=== PATIENT | female | born 2000 | race Caucasian/White ===

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

== ENCOUNTER 2024-05-31 20:35 | Emergency (ER) | payer SELFPAY ==
[2024-05-31] MEDS ORDERED: DIAZEPAM 5 MG TABLET ONE (21:02)
[2024-05-31 21:37] LABS: Absolute Basophils 0.1 K/uL (0-0.5); Absolute Eosinophils 0.1 K/uL (0-0.5); Absolute Lymphocytes (CBC) 1.3 K/uL (0.7-4.9); Absolute Monocytes 0.4 K/uL (0.1-1.3); Absolute Neutrophil 2.1 K/uL (1.8-8.0); Basophils % 3.7 % (0-1.3); Eosinophils % 1.9 % (0-4.4); Hematocrit 39.8 % (36.0-45.0); Hemoglobin 13.6 g/dL (12.0-15.0); Lymphocytes % 31.3 % (15.3-44.8); MCH 31.7 pg (27.0-35.0); MCHC 34.2 g/dL (32.0-36.0); MCV 92.5 fL (80-100); Monocytes % 9.6 % (3.3-12.3); Neutrophils % 53.5 % (41.7-73.7); Nucleated Red Blood Cells % 0.1 % (0-0); Platelets 267 thou/uL (152-406); Red Cell Distribution Width 13.6 % (12.1-15.2)
[2024-05-31 21:47] LABS: Barbiturates NEGATIVE (NEGATIVE); Benzodiazepines NEGATIVE (NEGATIVE); Cocaine NEGATIVE (NEGATIVE); METHAMPHETAM NEGATIVE (NEGATIVE); Methadone NEGATIVE (NEGATIVE); Opiates NEGATIVE (NEGATIVE); Phencyclidine NEGATIVE (NEGATIVE); THC Cannibis NEGATIVE (NEGATIVE)
[2024-05-31 21:50] LABS: Specific Gravity 1.004 (1.005-1.030)
[2024-05-31 21:52] LABS: ALT/SGPT 44 U/L (13-56); AST/SGOT 24 U/L (15-37); Albumin 3.6 g/dL (3.4-5.0); Alkaline Phosphatase 72 U/L (45-117); Anion Gap 7.5 mEq/L (5.0-15.0); BUN Blood Urea Nitrogen 6 mg/dL (7-18); Bicarbonate 27 mEq/L (21-32); Bilirubin Direct < 0.2 mg/dL (0-0.2); Bilirubin Indirect, Calculated 0.2 mg/dL (0.2-0.8); Bilirubin Total 0.4 mg/dL (0.2-1.0); Globulin 3.6 g/dL (2.3-3.5); Glomerular Filtration Rate 123 ml/min (=/>90); Glucose Level 83 mg/dL (74-106); Potassium 3.5 mEq/L (3.5-5.1); Protein, Total 7.2 g/dL (6.4-8.2); Sodium Level 137 mEq/L (136-145)
[2024-05-31 21:58] LABS: Specific Gravity < 1.005 (1.005-1.030); Sqamous Epithelial None Seen /HPF (None Seen); Urine Bacteria <20 /HPF (<20); Urine Bilirubin NEGATIVE (Negative); Urine Blood Negative (Negative); Urine Clarity Clear (Clear); Urine Color Colorless (Yellow); Urine Culture Reflex Order NOT NEEDED; Urine Glucose NEGATIVE (Negative); Urine Ketones NEGATIVE (Negative); Urine Microscopic Reflex YN ORDER UMIC; Urine Nitrite NEGATIVE (Negative); Urine Protein NEGATIVE (Negative); Urine RBC <5 /HPF (None Seen); Urine Urobilinogen Normal (Normal); Urine WBC <5 /HPF (<5); Urine pH 7.5 (5.0-7.0)
[2024-05-31 22:00] LABS: PT Prothrombin Time 11.6 SECONDS (9.4-12.5); PTT, Activated Partial Thromb 32.3 SECONDS (24.3-36.9); Protime INR 1.04
[2024-05-31 22:52] LABS: Band Neutrophils 14 % (0-1); Differential Total Cells Count 100; Eosinophils 2 % (0-3); Lymphocytes 29 % (15-42); Monocytes 4 % (0-10); Segmented Neutrophils 47 % (40-80)
[2024-05-31 22:53] LABS: Blood Morphology Comment NOT SEEN (NOT SEEN); Platelet Estimate ADEQ
--- NOTE | 2024-06-01 05:28 | ER ---
Nurse's Notes [facility] Name: Qi Wilcox Age: 24 yrs Sex: Female : 2000 Arrival Date: 05/31/2024 Time: 20:35 Bed 15 [facility] MD: Diagnosis: Suicidal ideations Presentation: 05/31 20:40 Chief complaint: Patient states: I was referred from my Doctors to come here if it was vc1 a mental health crisis. 20:49 Coronavirus screen: Client denies travel out of the [place] in the last 14 days. At this vc1 time, the client does not indicate any symptoms associated with coronavirus-19. Ebola Screen: Patient negative for fever greater than or equal to 101.5 degrees Fahrenheit, and additional compatible Ebola Virus Disease symptoms Patient denies exposure to infectious person. Patient denies travel to an Ebola-affected area in the 21 days before illness onset. No symptoms or risks identified at this time. Initial Sepsis Screen: Does the patient meet any 2 criteria? No. Patient's initial sepsis screen is negative. Does the patient have a suspected source of infection? No. Patient's initial sepsis screen is negative. Risk Assessment: Do you want to hurt yourself or someone else? Patient reports no desire to harm self or others. Onset of symptoms was May 27, 2024. Care prior to arrival: None. Activity prior to arrival: None. Mechanism of Injury: No Mechanism of Injury. Transition of care: patient was not received from another setting of care. 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 - Infectious Disease History:: Denies. - Social history:: Smoking status: Reported history of juuling and/or vaping. Patient uses alcohol, patient/guardian reports recent binge of alcohol consumption. - Family history:: not pertinent. Screenin:08 [facility] ED Fall Risk Assessment (Adult) History of falling in the last 3 months, me1 including since admission No falls in past 3 months (0 pts) Confusion or Disorientation No (0 pts) Intoxicated or Sedated No (0 pts) Impaired Gait No (0 pts) Mobility Assist Device Used No (0 pt) Altered Elimination No (0 pt) Score/Fall Risk Level 0 - 2 = Low Risk Maintained a safe environment, Provided non-skid footwear, Hourly rounding (assess needs \\T\\ fall precautionary measures) done. Abuse screen: Denies threats or abuse. Nutritional screening: No deficits noted. Tuberculosis screening: No symptoms or risk factors identified. Assessment: 21:08 General: Appears uncomfortable, well groomed, well developed, well nourished, Behavior me1 is cooperative, appropriate for age, flat. Pain: Denies pain. Neuro: Level of Consciousness is awake, alert, obeys commands, Oriented to person, place, time, situation, Appropriate for age. Cardiovascular: Patient's skin is warm and dry. Respiratory: Airway is patent Respiratory effort is even, unlabored, Respiratory pattern is regular, symmetrical. GI: No signs and/or symptoms were reported involving the gastrointestinal system. : No signs and/or symptoms were reported regarding the genitourinary system. EENT: No signs and/or symptoms were reported regarding the EENT system. Derm: Skin is intact, is healthy with good turgor, Skin is pink, warm \\T\\ dry. Musculoskeletal: No signs and/or symptoms reported regarding the musculoskeletal system. 06/01 02:45 General: [place] at bedside. . vc1 04:18 General: General: Report given to Tye with [facility], will call back to give AOC..vc1 04:24 Reassessment: No changes from previously documented assessment. Patient and/or family vc1 updated on plan of care and expected duration. Pain level reassessed. Psych: 05/31 20:40 [place] Suicide Severity Screening: In the past month, have you wished you were vc1 or wished you could go to sleep and not wake up? Patient responds "yes." Based off the client's responses additional C-SSRS screening is required. "In the past month, have you actually had any thoughts of killing yourself?" Patient responds "yes." Based off the client's response additional [place] suicide severity screening questions to be further documented on paper forms. "In your lifetime, have you ever done anything, started to do anything, or prepared to do anything to end your life?" Patient responds "yes." Patient reports suicidal intent within 3 past months. 20:40 Subjective: Patient's mood is sad, Delusions are denied, Hallucinations are denied vc1 Having thoughts of suicide. Denies suicidal plan. Objective: Patient is cooperative, using poor eye contact, Speech is soft, Affect is appropriate, Patient has mutilated themselves by left hand cut with knife. Patient uses any ETOH. Commitment: Patient will be an involuntary commitment. 20:40 Interventions: Removed personal items and placed in bag. Patient placed in hospital vc1 gown. Searched person for dangerous items. Urine collected and sent for urine drug test. 20:40 Safety Checks: Personal items have been removed. Door is open. Visitors are present. vc1 mom. Vital Signs: 20:49 Weight 61.23 kg; Height 5 ft. 1 in. ; Pain 0/10; vc1 20:58 BP 121 / 86; Pulse 98; Resp 14; Temp 97.6; Pulse Ox 100% ; vc1 06/01 05:13 BP 107 / 66; Pulse 80; Resp 18; Pulse Ox 99% on R/A; oe 05/31 20:49 Body Mass Index 25.51 (61.23 kg, 154.94 cm) vc1 05/31 20:49 Pain Scale: Adult vc1 [place] Coma Score: 02:47 Eye Response: spontaneous(4). Motor Response: obeys commands(6). Verbal Response: sp4 oriented(5). Total: 15. ED Course: 05/31 20:37 Patient arrived in ED. im 20:43 Xavier Ibarra MD is Attending Physician. sp4 20:49 Cristal Tse, JUAN LUIS is Primary Nurse. me1 20:50 Triage completed. vc1 20:57 Arm band placed on right wrist. vc1 21:08 Patient has correct armband on for positive identification. Bed in low position. Call me1 light in reach. Side rails up X 1. Provided Education on: POC. Verbalized understanding.. 21:08 No provider procedures requiring assistance completed. me1 21:20 Inserted saline lock: 22 gauge in right antecubital area, using aseptic technique. oe Blood collected. Flushed with 10 mL NS. 21:44 EKG done, by ED staff, reviewed by Xavier Ibarra MD. oe 06/01 00:00 Called [facility] for pt evaluation. rv1 02:00 Brianna with [facility] will be here in 1 hour for screening. rv1 04:05 Faxed pt clinical's to the following facilities for placement; [facility]. rv1 04:[address] Robertson to [facility], MOT given my [place]. rv1 04:39 Etelvina with [facility] gave 20 min ETA. rv1 05:15 IV discontinued, intact, bleeding controlled, No redness/swelling at site. Pressure vc1 dressing applied. Administered Medications: 05/31 21:05 Drug: Diazepam PO 5 mg PO once Route: PO; me1 22:34 Follow up: Response: No adverse reaction; Marked relief of symptoms; Anxiety decreased ss Medication: 21:08 VIS not applicable for this client. me1 Outcome: 06/01 05:15 Transferred by ground EMS [facility]. to other acute care facility: [facility]. vc1 Condition: good 05:15 ER care complete, transfer ordered by . vc1 05:15 Patient left the ED. Signatures: Kiya Salgado, RN RN Jose Alejandro Antonio Rukhsana Lay RN RN vc1 Pippa Kyle rv1 Xavier Ibarra MD MD sp4 Stephanie Rush Michelle, RN RN me1 Corrections: (The following items were deleted from the chart) 05:28 05:28 ER care complete, transfer ordered by . vc1 vc1 05:28 05:28 Patient left the ED. vc1 vc1
--- NOTE | 2024-06-01 05:28 | EDPHYS ---
Physician Documentation [facility] Name: Qi Wilcox Age: 24 yrs Sex: Female : 2000 Arrival Date: 05/31/2024 Time: 20:35 Bed 15 Private MD: ED Physician Xavier Ibarra HPI: 05/31 20:43 This 24 yrs old Other Race Female presents to ER via Unassigned with complaints of sp4 Mental health crisis. 06/01 02:47 4-year-old female presents with acute depression and suicide attempt on Friday via sp4 taking Lamictal. Patient states she took 4 tabs of her Lamictal. 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 - Infectious Disease History:: Denies. - Social history:: Smoking status: Reported history of juuling and/or vaping. Patient uses alcohol, patient/guardian reports recent binge of alcohol consumption. - Family history:: not pertinent. ROS: 06/01 02:47 Constitutional: Negative for fever, chills, and weight loss, positive depression, sp4 positive suicidal ideation positive suicide plan All other systems are negative, Exam: 02:47 Constitutional: This is a well developed, well nourished patient who is awake, alert, sp4 and in no acute distress. Head/Face: Normocephalic, atraumatic. Eyes: Pupils equal round and reactive to light, extra-ocular motions intact. Lids and lashes normal. Conjunctiva and sclera are not injected. Cornea within normal limits. Periorbital areas with no swelling, redness, or edema. ENT: Nares patent. No nasal discharge, no septal abnormalities noted. Tympanic membranes are normal and external auditory canals are clear. Oropharynx with no redness, swelling, or masses, exudates, or evidence of obstruction, uvula midline. Mucous membranes moist. Neck: Trachea midline, no thyromegaly or masses palpated, and no cervical lymphadenopathy. Supple, full range of motion without nuchal rigidity, or vertebral point tenderness. Chest/axilla: Normal chest wall appearance and motion. Nontender with no deformity. No lesions are appreciated. Cardiovascular: Regular rate and rhythm with a normal S1 and S2. No gallops, murmurs, or rubs. Normal PMI, no JVD. No pulse deficits. Respiratory: Lungs have equal breath sounds bilaterally, clear to auscultation and percussion. No rales, rhonchi or wheezes noted. No increased work of breathing, no retractions or nasal flaring. Abdomen/GI: Soft, with normal bowel sounds. No distension or tympany. No guarding or rebound. No evidence of tenderness throughout. Back: No spinal tenderness. No costovertebral tenderness. Skin: Warm, dry with normal turgor. Normal color with no rashes, no lesions, and no evidence of cellulitis. MS/ Extremity: Pulses equal, no cyanosis. Neurovascular intact. Full, normal range of motion. Neuro: Awake and alert, GCS 15, oriented to person, place, time, and situation. Cranial nerves II-XII grossly intact. Motor strength 5/5 in all extremities. Sensory grossly intact. Psych: Awake, alert, with orientation to person, place and time. Behavior, mood, and affect are within normal limits 02:47 ECG was reviewed by the Attending Physician. EKG at 2141 normal sinus rhythm rate 93 sp4 Vital Signs: 05/31 20:49 Weight 61.23 kg; Height 5 ft. 1 in. ; Pain 0/10; vc1 20:58 BP 121 / 86; Pulse 98; Resp 14; Temp 97.6; Pulse Ox 100% ; vc1 06/01 05:13 BP 107 / 66; Pulse 80; Resp 18; Pulse Ox 99% on R/A; oe 05/31 20:49 Body Mass Index 25.51 (61.23 kg, 154.94 cm) vc1 05/31 20:49 Pain Scale: Adult vc1 [place] Coma Score: 02:47 Eye Response: spontaneous(4). Motor Response: obeys commands(6). Verbal Response: sp4 oriented(5). Total: 15. MDM: 05/31 20:43 Patient medically screened. 4 06/01 02:47 Differential diagnosis: drug withdrawal. acute psychotic break, depression, psychosis sp4 secondary to non-compliance. Data reviewed: vital signs, nurses notes, lab test result(s), drug level(s), electrolytes, hepatic panel, urinalysis. ED course: Patient will be assessed by the [facility] counselors. 20:59 Consideration of Admission/Observation Escalation of care including sp4 admission/observation considered. Management of patient was discussed with the following: Bioinformatics Technician: Attending Psychiatrist . ED course: Patient transferred to [facility] in stable condition . 05/31 20:59 Order name: Acetaminophen; Complete Time: 23:37 [facility] 05/31 20:59 Order name: Basic Metabolic Panel; Complete Time: 23:37 [facility] 05/31 20:59 Order name: CBC with Diff; Complete Time: 23:37 [facility] 05/31 20:59 Order name: ETOH Level; Complete Time: 23:37 [facility] 05/31 20:59 Order name: Hepatic Function; Complete Time: 23:37 [facility] 05/31 20:59 Order name: PT-INR; Complete Time: 23:37 [facility] 05/31 20:59 Order name: Test, Urine; Complete Time: 23:37 [facility] 05/31 20:59 Order name: Ptt, Activated; Complete Time: 23:37 [facility] 05/31 20:59 Order name: Salicylate; Complete Time: 23:37 [facility] 05/31 20:59 Order name: Urinalysis w/ reflexes; Complete Time: 23:37 [facility] 05/31 20:59 Order name: Urine Drug Screen; Complete Time: 23:37 [facility] 05/31 22:33 Order name: Manual Differential; Complete Time: 23:37 [facility] 05/31 20:59 Order name: EKG; Complete Time: 21:00 [facility] 05/31 20:59 Order name: EKG - Nurse/Tech; Complete Time: 22:34 [facility] 05/31 20:59 Order name: IV Saline Lock; Complete Time: 22:10 [facility] 05/31 20:59 Order name: Labs collected and sent; Complete Time: 22:10 [facility] 05/31 20:59 Order name: Suicide Precautions; Complete Time: 21:11 [facility] 05/31 20:59 Order name: Suicide Screening ([place]); Complete Time: 21:11 sp4 EC:47 Rate is 93 beats/min. Rhythm is regular, Normal Sinus Rhythm. QRS [place] is Normal. [place] sp4 interval is normal. QRS interval is normal. QT interval is normal. No Q waves. T waves are Normal. No ST changes noted. Clinical impression: Normal ECG. Interpreted by me. Reviewed by me. Administered Medications: 05/31 21:05 Drug: Diazepam PO 5 mg PO once Route: PO; me1 22:34 Follow up: Response: No adverse reaction; Marked relief of symptoms; Anxiety decreased ss Disposition: 06/01 21:00 Chart complete. sp4 Disposition Summary: 06/01/24 05:28 Transfer Ordered Notes: Transfer Location: Psych Facility vc1 Reason: Higher level of care vc1 Condition: Stable vc1 Problem: new vc1 Accepting Physician: [facility](06/01/24 05:28) vc1 Diagnosis - Suicidal ideations vc1 Discharge Instructions: - Discharge Summary Sheet rv1 Forms: - Medication Reconciliation Form vc1 - SBAR form rv1 Signatures: Dispatcher [employer] EDRukhsana Urena RN RN vc1 Xavier Ibarra MD MD sp4 Cristal Tse RN RN me1 Kiya Salgado RN ss Corrections: (The following items were deleted from the chart) 05/31 21:00 21:00 ACETAMINOPHEN+C.LAB.BRZ ordered. EDMS EDMS 21:00 21:00 BASIC METABOLIC PANEL+C.LAB.BRZ ordered. EDRI EDMS 21:00 21:00 CBC+H.LAB.BRZ ordered. EDMS EDMS 21:00 21:00 ETHANOL+C.LAB.BRZ ordered. EDMS EDMS 21:00 21:00 HEPATIC FUNCTION+C.LAB.BRZ ordered. EDMS EDMS 21:00 21:00 PROTIME (+INR)+COAG.LAB.BRZ ordered. EDMS EDMS 21:00 21:00 Test, Urine+UC.LAB.BRZ ordered. EDMS EDMS 21:00 21:00 PTT, ACTIVATED+COAG.LAB.BRZ ordered. EDMS EDMS 21:00 21:00 SALICYLATE+C.LAB.BRZ ordered. EDMS EDMS 21:00 21:00 Urinalysis+U.LAB.BRZ ordered. EDMS EDMS 21:00 21:00 URINE DRUG SCREEN+UC.LAB.BRZ ordered. EDMS EDMS 06/01 05:28 05:28 [facility] vc1 vc1
[2024-06-01 05:46] VITALS: TEMP 97.6
[2024-06-01 05:47] VITALS: BP 107/66; O2SAT 99
--- NOTE | 2024-06-01 16:57 | EKG ---
Test Date: 2024-05-31 Test Time: 21:41:28 Machine Hose Cutter: DIANNE MEASUREMENT RESULTS: Intervals: Rate: 93 [place]: 144 QRSD: 84 QT: 330 QTc: 410 [place]: P: 57 [place]: 144 QRS: 41 T: 28 INTERPRETIVE STATEMENTS: Normal sinus rhythm Normal ECG Compared to ECG 05/29/2018 11:35:49 Sinus bradycardia no longer present Electronically Signed On 06-01-24 16:54:48 CDT by [place] Fajardo
== END 2024-06-01 05:28 ==
LOC: ER 20:35
DX: R45.851 Suicidal ideations (principal)
CPT/HCPCS: 36415; 80048; 80076; 80143; 80179; 80307; 81001; 81025; 82077; 85025; 85610; 85730; 93005; 99285